=== PATIENT | female | born 1960 | race African-American/Black ===

== ENCOUNTER 2016-05-10 15:35 | Emergency (ER) | payer OTHER ==
[2016-05-10 14:10] LABS: ALBUMIN 3.7 G/DL (3.5-5.0); CALCIUM, SERUM 8.7 MG/DL (8.5-10.4); CHLORIDE, SERUM 108 MMOL/L (96-112); GFR AFRICAN AMERICAN 66 ML/MIN (>=60); GFR NON AFRICAN AMERICAN 57 ML/MIN (>=60); POTASSIUM, SERUM 4.3 MMOL/L (3.5-5.3); SGPT(ALT) 30 U/L (5-65); SODIUM, SERUM 140 MMOL/L (135-148); TOTAL PROTEIN 7.8 G/DL (6.0-8.5)
[2016-05-10 14:13] LABS: A/G RATIO 0.9 (0.7-1.9); ALKALINE PHOSPHATASE 104 U/L (45-117); BUN (BLOOD UREA NITROGEN) 13 MG/DL (6-23); CO2 (CARBON DIOXIDE) 17 MMOL/L (24-34); GLOBULIN 4.1 G/DL (2.5-4.1); GLUCOSE, SERUM 91 MG/DL (60-99); SGOT(AST) 19 U/L (5-40); TOTAL BILIRUBIN 0.2 MG/DL (0-1.2)
[2016-05-10 14:38] LABS: ASCORBIC ACID (UR NOT ORDER) NEG (NEG); BILIRUBIN, URINE NEGATIVE (NEG); ER URINALYSIS TAT 0 Hrs 09 Mins; KETONE, URINE TRACE MG/DL (NEG); LEUKOCYTE ESTERASE(NOT OR NEG (NEG); NITRITE (URINE) NEG (NEG); WBC (NOT ORDERED) (RFLEX) 3 (0-5)
[~2016-05-10 15:35] MED LIST: ASCOL PO; DENIES HOME MEDS; PT UNABLE TO RECALL OR; REMICADE IV
== END 2016-05-10 15:46 | disposition home or self-care (01) ==
LOC: ER 15:35
PROVIDERS: Emergency Medicine
DX: K52.9 Noninfective gastroenteritis and colitis, unspecified (principal); F17.200 Nicotine dependence, unspecified, uncomplicated
CPT/HCPCS: 74176; 80053; 81001; 83605; 83690; 85025; 93005; 96374; 99285; J1980; J2405

== ENCOUNTER 2016-11-26 05:47 | Emergency (ER) | payer OTHER ==
[2016-11-26 06:37] LABS: BASOPHILS 0.2 %; BASOPHILS ABSOLUTE 0.02 10/3/uL (0.0-0.16); EOSINOPHILS 0.3 %; EOSINOPHILS ABSOLUTE 0.04 10/3/uL (0.0-0.53); HEMATOCRIT 34.7 % (36.0-48.0); HEMOGLOBIN 11.5 g/dL (12.0-16.0); IMMATURE GRANULOCYTES 0.2 %; IMMATURE GRANULOCYTES ABSOLUTE 0.02 10/3/uL (0.0-0.11); LYMPHOCYTES 9.5 %; LYMPHOCYTES ABSOLUTE 1.09 10/3/uL (0.67-4.30); MEAN CORPUS HGB CONC 33.1 g/dL (32.0-36.0); MEAN CORPUSCULAR HEMOGLOB 29.5 pg (26.0-34.0); MEAN PLATELET VOLUME 9.2 fL (9.2-13.0); MONOCYTES 2.7 %; MONOCYTES ABSOLUTE 0.31 10/3/uL (0.21-1.20); NEUTROPHILS 87.1 %; NEUTROPHILS ABSOLUTE 9.96 10/3/uL (2.02-8.40); PLATELET COUNT 276 10/3/uL (150-400); RBC DISTRIBUTION WIDTH 14.1 % (12.0-16.0)
[2016-11-26 06:39] LABS: MANUAL DIFF NO %; WHITE BLOOD CELLS 11.4 10/3/uL (4.5-10.5)
[2016-11-26 06:50] LABS: BUN (BLOOD UREA NITROGEN) 23 MG/DL (6-23); CALCIUM, SERUM 8.4 MG/DL (8.5-10.4); CHLORIDE, SERUM 108 MMOL/L (96-112); CO2 (CARBON DIOXIDE) 27 MMOL/L (24-34); CREATININE 1.25 MG/DL (0.55-1.02); GFR AFRICAN AMERICAN 56 ML/MIN (>=60); GFR NON AFRICAN AMERICAN 49 ML/MIN (>=60); GLUCOSE, SERUM 107 MG/DL (60-99); POTASSIUM, SERUM 3.8 MMOL/L (3.5-5.3); SODIUM, SERUM 143 MMOL/L (135-148)
== END 2016-11-26 07:06 | disposition home or self-care (01) ==
LOC: ER 05:47
PROVIDERS: Emergency Medicine
DX: M62.838 Other muscle spasm (principal); Z90.710 Acquired absence of both cervix and uterus; Z79.899 Other long term (current) drug therapy
CPT/HCPCS: 80048; 85025; 96372; 99284; A9270-GY; J2360